=== PATIENT | female | born 2000 | race Caucasian/White ===

== ENCOUNTER 2024-04-05 22:38 | Emergency (ER) | payer OTHER ==
[2024-04-05 22:42] VITALS: BP 124/86; PULSE 77; RESP 20; TEMP 98.8; BMI 36.6
== END 2024-04-06 01:03 | disposition home or self-care (01) ==
LOC: JER 22:38
DX: S60.032A Contusion of left middle finger without damage to nail, initial encounter (principal); W23.1XXA Caught, crushed, jammed, or pinched between stationary objects, initial encounter
CPT/HCPCS: 73130-TC-LT-FY; 99283-25